=== PATIENT | male | born 1995 ===

== ENCOUNTER 2024-08-15 07:27 | Day surgery (SDC) | payer OTHER, SELFPAY ==
[2024-08-15] VITALS (7 sets, daily range): BP systolic 117–131; BP diastolic 67–81; PULSE 71–84; RESP 14–20; TEMP 36.1–36.3; O2SAT 93–98; BMI 29.5
[2024-08-15] MEDS: OXYMETAZOLINE NASAL SPRAY 30 ML 2 SPRAYS NASAL (08:14)
[2024-08-15] MEDS: LACTATED RINGERS 1,000 ML 42 ML IV (08:18)
[2024-08-15] MEDS: ACETAMINOPHEN 325 MG TABLET 975 MG PO (08:27)
--- NOTE | 2024-08-15 08:31 | PM.PREOP ---
Pre-operative Note Interval Note History & Physical reviewed/Exam performed by Physician: Yes Changes to H&P: No
--- NOTE | 2024-08-15 08:31 | PM.HP.1 ---
History of Present Illness History of Present Illness Date Patient Seen: 08/15/24 Time Patient Seen: 08:32 Chief complaint: Septoplasty & turbinate reduction Narrative: 29-year-old male last seen in clinic 06/19/2024 for chronic nasal obstruction, known left septal deviation, presents for septoplasty and inferior turbinate reduction under general anesthesia. No interval health changes, wishes to proceed. [facility] Social History household members: spouse Smoking Status: Never smoker alcohol intake: current Meds Home Medications and Allergies Home Medications Medication Instructions Recorded Confirmed Type No Known Home Medications 08/15/24 08/15/24 History Allergies Allergy/AdvReac Type Severity Reaction Status Date / Time No Known Drug Allergies Allergy Verified 08/15/24 08:12 Review of Systems Review of Systems Narrative: Negative except as listed in the HPI Exam Vital Signs (past 8 hours): - 08/15/24 08:05 Temperature 97.1 F L Pulse Rate 71 Respiratory Rate 16 Blood Pressure 131/81 Pulse Oximetry 98 Oxygen Delivery Method Room Air Oxygen Delivery Method Room Air Narrative Exam Narrative: Well-developed well-nourished, heart regular rate and rhythm without murmur, lungs clear to auscultation bilaterally Assessment & Plan Assessment & Plan narrative: Assessment: Nasal airway obstruction, septal deviation, inferior turbinate hypertrophy, chronic rhinitis Plan: Following discussion of the material risks benefits complications and alternatives, the patient elected to proceed. Time-Based Coding :: [TOTAL MINUTES] spent with patient and on the chart (including review of chart, obtaining history, exam, reviewing outside data, placing orders, documenting exam and treatment plan, and counseling patient) on [DATE].
--- NOTE | 2024-08-15 08:40 | PM.OP.1 ---
Operative Date/Time/Diagnoses Date of procedure: 08/15/24 Time of procedure: 10:25 Pre-op diagnosis: Nasal airway obstruction, septal deviation, inferior turbinate hypertrophy, chronic rhinitis Post-op diagnosis: same Procedure & Clinicians Procedure: 1. Septoplasty 2. Bilateral inferior turbinate reduction via intramural cautery Same procedure as scheduled: Yes Indications: 29 Year old with the above diagnoses incompletely managed with medical therapy presents for the above procedure. Following discussion of the material risks benefits complications and alternatives, the patient elected to proceed. Surgeon: Andrade Dwyer Click Yes if Unassisted: Yes Anesthesia Type: General and Local Operative Notes Findings: 2-3+ left septal deviation bony and cartilagenous including caudally, improved, mild [id number]-left inferior turbinate hypertrophy Estimated Blood Loss (mL): 30 Procedure in detail: Following identification and confirmation of consent as well as preoperative Afrin nasal spray, the patient was brought to the operating room suite and placed in the supine position. General endotracheal anesthesia was administered. I infiltrated the septum widely bilaterally with 1% lidocaine 1 100,000 epinephrine followed by temporary packing with cotton with Afrin and 4% lidocaine. Following sterile prep and drape, the packing was removed and I performed a right jabari-transfixion incision, elevated the right mucoperichondrial and mucoperiosteal flap. I disarticulated near the bony/cartilaginous junction and elevated the left mucoperiosteal flap. Deviated portions of the perpendicular plate of the ethmoid and vomer were resected. The residual quadrilateral cartilage was further straightened by trimming it inferiorly as well as reducing the maxillary crest. A 2 mm strip of cartilage paralleling the residual 1 cm dorsal and caudal strut was resected to further straighten the quadrilateral cartilage. The hemitransfixion incision was closed with interrupted 5 0 chromic followed by a running 4 0 plain gut mattress suture to reapproximate the septal flaps. At case completion, 20/1000th of an inch silastic splints were placed bilaterally, sutured anteriorly with a single 4 0 nylon. The head of each inferior turbinate had been previously infiltrated with additional local anesthetic and a 25 gauge spinal needle was used to impale the length of the turbinate, with cautery on a setting of 15 activated on slow withdrawal over 2 passes. The turbinates were then outfractured. The procedure completed, sponge and needle counts were correct and the patient was extubated in the operating room and taken to recovery room in stable condition without known complication. Postoperative care: Nasal saline every hour while awake, Polysporin to the nostrils at all times, begin irrigations t.i.d. beginning pod 1. Humidifier at the bedside blowing on the face. Tylenol alternating with Advil for pain control, oxycodone if necessary for breakthrough pain. Complications: none Post-operative Condition: stable Disposition: same day surgery Plan for aftercare: Nasal saline every hour while awake, begin irrigations t.i.d. tomorrow if desired. Polysporin to the nostrils at all times, Tylenol alternating with Advil for pain control, oxycodone for breakthrough pain. Elevate head of bed, no nose blowing, no straining for 2 weeks. Ice directly under the nose on the upper lip has tolerated 24-48 hours at a minimum. Follow-up in 1 week for nasal splint removal.
[2024-08-15] MEDS: LIDOCAINE 4% SOLN 50 ML 20 ML TOP (09:03)
[2024-08-15] MEDS: LIDOCAINE 1% W/EPI 20 ML INJ (09:03)
[2024-08-15] MEDS: BACITRACIN OINT 0.9 GM PCKT 1 APPLIC TOP (09:05)
--- NOTE | 2024-08-15 09:16 | SUR.OPER ---
Supine on padded OR bed, head on gel headrest, arms tucked at sides, legs uncrossed, safety belt at thigh, tape over blanket over lower legs.
[2024-08-15] MEDS: OXYCODONE IR 5 MG TABLET PO (10:47)
== END 2024-08-15 11:21 | disposition home or self-care (01) ==
PROVIDERS: PCP Nurse Practitioner Family; Referring Provider Otolaryngology; Visit Provider Otolaryngology
PROC: (CPT 30520; principal; 2024-08-15 08:45)
DX: J34.2 Deviated nasal septum (principal); J34.3 Hypertrophy of nasal turbinates; R09.81 Nasal congestion; J98.8 Other specified respiratory disorders
CPT/HCPCS: 30520; 30802; J1100; J2250; J2405; J2704; J3010